=== PATIENT | male | born 1975 | race Caucasian/White ===

== ENCOUNTER 2016-11-24 03:53 | Emergency (ER) | payer SELFPAY ==
[2016-11-24 03:54] VITALS: BMI 33.3
[2016-11-24 04:20] VITALS: BP 134/87; PULSE 76; RESP 16; TEMP 98.3; O2SAT 95
[2016-11-24] MEDS ORDERED: Lidocaine 5% Patch TD STA (04:32)
[2016-11-24] MEDS ORDERED: Oxycodone/Acetaminophen 5/325 mg Tab PO STA (04:33)
--- NOTE | 2016-11-24 04:40 | ED PDOC ---
Arrival/HPI <Musa Magana - Last Filed: 11/24/16 05:57> - History of Present Illness Time/Duration: Other (2 weeks) Symptom Onset: Gradual Symptom Course: Worsening Quality: Aching, Stabbing Severity Level: 9 Activities at Onset: Light Context: Home, Work <VIPIN CRENSHAW - Last Filed: 11/24/16 06:03> - General Chief Complaint: Back Pain Time Seen by Provider: 11/24/16 04:31 - History of Present Illness Narrative History of Present Illness (Text): 11/24/16 04:35 Mr. Winter is a 41 year old male with a past medical history significant for lumbar disc herniation presents to the [facility] ED with a chief complaint of low back pain. He reports that the pain is a sharp pain that radiates from the right lumbar paraspinal region to his testicles and and RLE with a duration of two weeks. He endorses that the pain has been constant but that its intensity fluctuates. He reports that he has been taking OTC tylenol with minimal relief. He states that he was seen "a few years ago" at [facility] where a physician told him that he had a "disc herniation" in his lumbar spine. He also reports urinary frequency and burning with urination for the past week. Patient denies fever, chills, weight loss, headache, dizziness, focal weakness, gait disturbances, chest pain, palpitations, SOB, cough, abdominal pain, N/V, diarrhea, constipation, or any new rashes. (VIPIN CRENSHAW) Past Medical History - Provider Review Nursing Documentation Reviewed: Yes - Travel History Have you recently traveled outside [place] w/in the past 3 mons?: No - Past History Past History: Non-Contributing - Infectious Disease Hx of Infectious Diseases: None - Tetanus Immunization Tetanus Immunization: Unknown - Past Medical History Past Medical History: No Previous - Cardiac Hx Cardiac Disorders: No - Pulmonary Hx Respiratory Disorders: No - Neurological Hx Neurological Disorder: No - HEENT Hx HEENT Disorder: No - Renal Hx Renal Disorder: No - Endocrine/Metabolic Hx Endocrine Disorders: No - Hematological/Oncological Hx Blood Disorders: No - Integumentary Hx Dermatological Disorder: No - Musculoskeletal/Rheumatological Hx Musculoskeletal Disorders: No - Gastrointestinal Hx Gastrointestinal Disorders: No - Genitourinary/Gynecological Hx Genitourinary Disorders: No - Psychiatric Hx Psychophysiologic Disorder: No Hx Substance Use: No - Past Surgical History Past Surgical History: No Previous - Anesthesia Hx Anesthesia: No - Suicidal Assessment Feels Threatened In Home Enviroment: No <VIPIN CRENSHAW - Last Filed: 11/24/16 06:03> Family/Social History - Physician Review Nursing Documentation Reviewed: Yes Family/Social History: Diabetes Smoking Status: Heavy Smoker > 10 Cigarettes Daily Hx Alcohol Use: No Hx Substance Use: No <VIPIN CRENSHAW - Last Filed: 11/24/16 06:03> Allergies/Home Meds <IzzyMateusshala - Last Filed: 11/24/16 05:57> <VIPIN CRENSHAW - Last Filed: 11/24/16 06:03> Allergies/Adverse Reactions: Allergies No Known Allergies Allergy (Verified 07/30/14 15:52) Review of Systems - Physician Review All systems were reviewed & negative as marked: Yes - Review of Systems Constitutional: Normal. absent: Weight Change, Fevers, Night Sweats Eyes: Normal. absent: Vision Changes ENT: Normal Respiratory: Normal. absent: SOB, Cough Cardiovascular: Normal. absent: Chest Pain, Palpitations Gastrointestinal: Normal. absent: Abdominal Pain, Constipation, Diarrhea, Nausea, Vomiting Genitourinary Male: Dysuria, Frequency. absent: Normal Musculoskeletal: Back Pain (lumbosacral paraspinal pain R>L). absent: Normal, Neck Pain Skin: Normal. absent: Rash Neurological: Normal. absent: Headache, Dizziness, Focal Weakness Endocrine: Normal Hemo/Lymphatic: Normal Psychiatric: Normal <VIPIN CRENSHAW - Last Filed: 11/24/16 06:03> Physical Exam Vital Signs Reviewed: Yes Temperature: Afebrile Blood Pressure: Normal Pulse: Regular Respiratory Rate: Normal Appearance: Positive for: Well-Appearing, Non-Toxic, Uncomfortable Pain Distress: Moderate Mental Status: Positive for: Alert and Oriented X 3 - Systems Exam Head: Present: Atraumatic, Normocephalic Pupils: Present: PERRL Extroacular Muscles: Present: EOMI Conjunctiva: Present: Normal Mouth: Present: Moist Mucous Membranes Neck: Present: Normal Range of Motion, Trachea Midline. No: Meningeal Signs, MIDLINE TENDERNESS, Paraspinal Tenderness, JVD, Lymphadenopathy Respiratory/Chest: Present: Clear to Auscultation, Good Air Exchange. No: Respiratory Distress, Accessory Muscle Use, Wheezes, Decreased Breath Sounds, Rales, Retracting, Rhonchi, Tachypneic, Tender to Palpation Cardiovascular: Present: Regular Rate and Rhythm, Normal S1, S2, Peripheal Pulses Present. No: Murmurs, Irregular Rhythm, Tachycardic, Bradycardic Abdomen: Present: Normal Bowel Sounds. No: Tenderness, Distention, Peritoneal Signs Back: Present: Midline Tenderness (Right lumbosacral region L3-S1), Paraspinal Tenderness (Right lumbosacral region L3-S1), Pain with Leg Raise (Right). No: Normal Inspection, CVA Tenderness Upper Extremity: Present: Normal Inspection, Normal ROM, NORMAL PULSES, Capillary Refill < 2s. No: Cyanosis, Edema Lower Extremity: Present: Normal Inspection, NORMAL PULSES, Normal ROM, Capillary Refill < 2 s. No: Edema, CALF TENDERNESS Neurological: Present: GCS=15, CN II-XII Intact, Speech Normal Skin: Present: Warm, Dry, Normal Color. No: Rashes Lymphatic: No: Cervical Adenopathy Psychiatric: Present: Alert, Oriented x 3, Normal Insight, Normal Concentration <VIPIN CRENSHAW - Last Filed: 11/24/16 06:03> Vital Signs Temp Pulse Resp BP Pulse Ox 11/24/16 04:15 98.3 F 76 16 134/87 95 Medical Decision Making <Musa Magana - Last Filed: 11/24/16 05:57> - Lab Interpretations I have reviewed the lab results: Yes <VIPIN CRENSHAW - Last Filed: 11/24/16 06:03> ED Course and Treatment: 11/24/16 06:00 Patient seen and examined with resident; no signs or symptoms to suggest grave pathology. Pain is worse with movement. Urine shows no blood and no flank pain complaint - doubt renal cause. Patient reports some improvement in symptoms after meds in the ED - will d/c on nsaid, muscle relaxant, analgesic, and lidoderm with plan to f/u primary care and recommendation for MRI and physical therapy. (Musa Magana) 11/24/16 04:44 Impression: 41 year old male with a past medical history significant for lumbar disc herniation presents to the [facility] ED with a chief complaint of low back pain Plan: -Valium 5mg, Percocet 5/325mg, Toradol 60mg IM and Lidocaine patch -UA -Lumbar Spine X-Ray -Reassess and disposition Prior Visits: All reports and results from all prior visits reviewed. 06/2014: Patient was seen and evaluated for eye irritation/pain (VIPIN CRENSHAW) - Lab Interpretations Lab Results: Lab Results 11/24/16 05:12: Urine Color Yellow, Urine Appearance Clear, Urine pH 6.0, Ur Specific [place] >= 1.030, Urine Protein Trace H, Urine Glucose (UA) Negative, Urine Ketones Negative, Urine Blood Negative, Urine Nitrate Negative, Urine Bilirubin Negative, Urine Urobilinogen 0.2, Ur Leukocyte Esterase Negative, Urine RBC 0 - 2, Urine WBC 0 - 2, Ur Epithelial Cells 0 - 2 - RAD Interpretation Radiology Orders: 11/24/16 04:36 LS SPINE WITH OBL > 18 YRS OLD [RAD] Stat - Medication Orders Current Medication Orders: Discontinued Medications Diazepam (Valium) 5 mg PO ONCE ONE Stop: 11/24/16 04:37 Last Admin: 11/24/16 04:53 Dose: 5 mg Ketorolac Tromethamine (Toradol) 60 mg IM STAT STA Stop: 11/24/16 04:33 Last Admin: 11/24/16 04:52 Dose: 60 mg MAR Pain Assessment Document 11/24/16 04:52 RD (Rec: 11/24/16 04:52 RD [id number]) Pain Reassessment Is this a pain reassessment? No Sleep Is patient sleeping during reassessment? No Presence of Pain Presence of Pain Yes IM Administration Charges Document 11/24/16 04:52 RD (Rec: 11/24/16 04:52 RD [id number]) Injection Site MAR Injection Site Left Deltoid Charges for Administration # of IM Administrations 1 Lidocaine (Lidoderm) 1 ea TD ONCE STA Stop: 11/24/16 04:33 Last Admin: 11/24/16 04:52 Dose: 1 ea MAR Transdermal Patch Site Document 11/24/16 04:52 RD (Rec: 11/24/16 04:53 RD [id number]) Transdermal Patch Site Transdermal Patch Site Right Lower Back Oxycodone/Acetaminophen (Percocet 5/325 Mg Tab) 1 tab PO STAT STA Stop: 11/24/16 04:34 Last Admin: 11/24/16 04:53 Dose: 1 tab MAR Pain Assessment Document 11/24/16 04:53 RD (Rec: 11/24/16 04:53 RD [id number]) Pain Reassessment Is this a pain reassessment? No Sleep Is patient sleeping during reassessment? No Presence of Pain Presence of Pain Yes - PA / SCULPTURE INSTRUCTOR / Resident Statement MD/DO has reviewed & agrees with the documentation as recorded. MD/DO has examined the patient and agrees with the treatment plan. <Musa Magana - Last Filed: 11/24/16 05:57> Disposition/Present on Arrival - Present on Arrival Any Indicators Present on Arrival: No - Disposition Have Diagnosis and Disposition been Completed?: Yes Disposition Time: 06:00 Patient Plan: Discharge <Musa Magana - Last Filed: 11/24/16 05:57> - Present on Arrival Any Indicators Present on Arrival: No History of DVT/PE: No History of Uncontrolled Diabetes: No Urinary Catheter: No History of Decub. Ulcer: No History Surgical Site Infection Following: None - Disposition Have Diagnosis and Disposition been Completed?: Yes Patient Plan: Discharge <VIPIN CRENSHAW - Last Filed: 11/24/16 06:03> - Disposition Diagnosis: Low back pain with right-sided sciatica Disposition: HOME/ ROUTINE Patient Problems: Current Active Problems Problem Status Onset Low back pain with right-sided sciatica Acute Condition: GOOD Discharge Instructions (ExitCare): Lumbar Disc Herniation (ED), Lumbar Radiculopathy (ED), Back Exercises (ED) Additional Instructions: Take the medications as prescribed. Avoid heavy lifting but avoid remaining sedentary. Recommend MRI of the low back and physical therapy to be arranged by primary care. Follow up with the medical clinic. Return to the emergency department if any new concerning symptoms. Prescriptions: Baclofen [Lioresal] 1 tab PO TID PRN #20 tab PRN Reason: Pain, Moderate (4-7) Lidocaine 5% [Lidoderm] 1 ea TD DAILY #10 patch Naproxen [Naprosyn] 500 mg PO BID PRN #30 tab PRN Reason: Pain oxyCODONE/Acetaminophen [Percocet 5/325 mg Tab] 1 - 2 tab PO Q6H PRN #20 tab PRN Reason: Pain, Severe (8-10) Referrals: [facility] at [facility] [Outside] - Follow up with primary Forms: [employer] ([place]i), WORK NOTE
[2016-11-24 05:38] LABS: URINE BILIRUBIN NEGATIVE (NEGATIVE); URINE BLOOD NEGATIVE (NEGATIVE); URINE GLUCOSE (UA) NEGATIVE (NEGATIVE); URINE KETONE NEGATIVE (NEGATIVE); URINE LEUKOCYTE ESTERASE NEGATIVE Leu/uL (NEGATIVE); URINE PROTEIN TRACE mg/dL (<30 mg/dL); URINE UROBILINOGEN 0.2 E.U./dL (<1 E.U./dL)
[2016-11-24 05:45] LABS: URINE APPEARANCE CLEAR (CLEAR); URINE COLOR YELLOW (YELLOW)
[2016-11-24 05:51] LABS: URINE EPITHELIAL CELLS 0 - 2 /hpf (0-5); URINE WBC 0 - 2 /hpf (0-6)
[2016-11-24 05:52] LABS: URINE RBC 0 - 2 /hpf (0-2)
--- NOTE | 2016-11-24 08:43 | RAD ---
PROCEDURE: Radiographs of the Lumbar Spine. HISTORY: low back pain COMPARISON: No prior. FINDINGS: BONES: Normal alignment. No listhesis. No fracture. DISC SPACES: Unremarkable. OTHER FINDINGS: None. IMPRESSION: Unremarkable radiographs of the lumbar spine.
== END 2016-11-24 06:15 | disposition home or self-care (01) ==
LOC: ED 03:53
DX: M54.41 Lumbago with sciatica, right side (principal)
CPT/HCPCS: 72110; 81001; 96372; 99282; J1885